=== PATIENT | male | born 1990 | race African-American/Black ===

== ENCOUNTER 2017-07-30 15:39 | Emergency (ER) | payer MEDICAID, OTHER ==
[~2017-07-30] VITALS: Ht 177.8 cm; Wt 85.5 kg
[~2017-07-30 15:39] MED LIST: BENZ2TAB10 PO; DIVA500T69 PO; HALO10 PO
[2017-07-30] MEDS ORDERED: TRAZ-147 PO (15:54)
[2017-07-30] MEDS ORDERED: RISP1 PO (15:54)
[2017-07-30] MEDS ORDERED: LORazepam 1 MG TABLET PO ONE (18:00)
[2017-07-30 19:40] VITALS: BP 122/79
== END 2017-07-30 19:44 | disposition home or self-care (01) ==
LOC: EMS 15:40
DX: F41.9 Anxiety disorder, unspecified (principal); F20.9 Schizophrenia, unspecified
CPT/HCPCS: 99284

== ENCOUNTER 2023-05-27 18:20 | Emergency (ER) | payer OTHER ==
[~2023-05-27] VITALS: Ht 177.8 cm; Wt 84.1 kg
[~2023-05-27 18:20] MED LIST changes: -BENZ2TAB10 PO; -DIVA500T69 PO; -HALO10 PO; +RISP1TAB48 PO; +TRAZ-257 PO
[2023-05-27 18:28] VITALS: TEMP 98.2
[2023-05-27 19:04] LABS: BASOPHILS % (AUTO) 1.2 % (0.0-2.0); EOSINOPHILS % (AUTO) 4.2 % (1.0-6.0); LYMPHOCYTES # (AUTO) 2.9 K/uL (1.0-4.8); LYMPHOCYTES % (AUTO) 41.7 % (22.0-44.0); MEAN CORPUSCULAR HEMOGLOBIN 28.5 pg (26.0-34.0); MEAN CORPUSCULAR HGB CONC 33.4 G/dL (31.0-37.0); MEAN CORPUSCULAR VOLUME 86 fL (80-100); MONOCYTES # (AUTO) 0.6 K/uL (0.1-1.0); MONOCYTES % (AUTO) 8.5 % (2.0-9.0); NEUTROPHILS % (AUTO) 44.4 % (40.0-70.0); PLATELET COUNT (AUTO) 254 K/uL (150-450); RED BLOOD CELL COUNT(AUTO) 4.56 MIL/uL (4.50-5.90); RED CELL DISTRIBUTION WIDTH 14.6 % (11.5-14.5); WHITE BLOOD COUNT (AUTO) 6.8 K/uL (4.5-11.0)
[2023-05-27 19:11] LABS: ANION GAP 10 mmol/L (8-16); CALCIUM, TOTAL 9.3 mg/dL (8.8-10.5); CARBON DIOXIDE 28 mmol/L (22-29); CHLORIDE 101 mmol/L (98-107); CREATININE 1.07 mg/dL (0.60-1.30); GLOMERULAR FILTR. RATE CALC > 60 mL/min (>60); GLUCOSE,RANDOM 111 mg/dL (70-110); POTASSIUM 3.9 mmol/L (3.5-5.1); SODIUM SERUM 139 mmol/L (136-145); UREA NITROGEN, BLOOD 17 mg/dL (7-18)
[2023-05-27 19:17] LABS: ALCOHOL, BLOOD (SERUM) < 3 mg/dL (0-10)
[2023-05-27 19:19] LABS: ALANINE AMINOTRANSFERASE 18 U/L (12-78); ALBUMIN 3.4 g/dL (3.4-5.0); ALKALINE PHOSPHATASE 65 U/L (46-116); ASPARTATE AMINOTRANSFERASE 11 U/L (15-37); BILIRUBIN,TOTAL 0.2 mg/dL (0.1-1.0)
[2023-05-28] MEDS: DIVALPROEX SODIUM 250 MG DR TABLET PO ONE ×2 (01:24→01:34)
[2023-05-28] MEDS: OLANZapine 10 MG TABLET PO ONE (01:24)
[2023-05-28 04:44] VITALS: BP 133/79; PULSE 71; RESP 17
== END 2023-05-28 05:45 | disposition home or self-care (01) ==
LOC: EMS 18:21
DX: F20.9 Schizophrenia, unspecified (principal); F41.9 Anxiety disorder, unspecified; F31.9 Bipolar disorder, unspecified; Z76.0 Encounter for issue of repeat prescription
CPT/HCPCS: 99283; 80053; 85025; 36415; G0480